=== PATIENT | female | born 1960 | race Caucasian/White ===

== ENCOUNTER 2016-09-09 11:09 | Emergency (ER) | payer SELFPAY ==
[2016-09-09 11:21] VITALS: BP 151/77
[2016-09-09] MEDS ORDERED: Tetan/Diph/Pertus SYR(Tdap)* 0.5 ML SYR(BOOSTRIX) use SYR IM ONE (12:26)
--- NOTE | 2016-09-09 12:29 | ED ---
Bite Injury/Animal - History of Current Complaint Chief Complaint: EDGeneral Stated Complaint: HAND INJURY FROM WORK Time Seen by Provider: 09/09/16 11:31 Pain Intensity: 1 - Allergies/Home Medications Allergies/Adverse Reactions: Allergies Allergy/AdvReac Type Severity Reaction Status Date / Time Sulfamethoxazole Allergy Mild Rash Verified 06/02/15 10:18 w/Trimethoprim [From Bactrim] PMH/Surg Hx/FS Hx/Imm Hx Endocrine/Hematology History: Denies: Hx Diabetes, Hx Thyroid Disease Cardiovascular History: Denies: Hx Hypertension, Hx Pacemaker/ICD, Hx Peripheral Vascular Disease Respiratory History: Denies: Hx Asthma, Hx Chronic Obstructive Pulmonary Disease (COPD) GI History: Reports: Other GI Disorders - denies N/V/D fever Denies: Hx Ulcer History: Denies: Hx Dialysis, Hx Renal Disease Musculoskeletal History: Reports: Hx Osteoporosis, Other Musculoskeletal History - plantar fasciitis Sensory History: Denies: Hx Cataracts, Hx Contacts or Glasses, Hx Glaucoma, Hx Hearing Aid Opthamlomology History: Denies: Hx Cataracts, Hx Contacts or Glasses, Hx Glaucoma Neurological History: Denies: Hx Headaches, Hx Seizures, Hx Transient Ischemic Attacks (TIA) Psychiatric History: Denies: Hx Anxiety, Hx Depression, Hx Panic Disorder Infectious Disease History: Denies: Hx Hepatitis, Hx Human Immunodeficiency Virus (HIV), History Other Infectious Disease, Traveled Outside the [place] in Last 30 Days - Social History Alcohol Use: Occasionally Substance Use Type: Reports: None Smoking Status (MU): Never Smoked Tobacco Physical Exam Vital Signs On Initial Exam: Initial Vitals Temp Pulse Resp BP Pulse Ox 97.7 F 66 18 151/77 98 09/09/16 11:13 09/09/16 11:13 09/09/16 11:13 09/09/16 11:13 09/09/16 11:13 Diagnostics - Vital Signs Vital Signs Temp Pulse Resp BP Pulse Ox 09/09/16 11:13 97.7 F 66 18 151/77 98 - Laboratory Lab Statement: Any lab studies that have been ordered have been reviewed, and results considered in the medical decision making process. Bite Injury Course/Dx - Course Course Of Treatment: Patient's wounds were cleaned and dressed. Patient applied triple antibiotic ointment PARKER. Very superficial not breaking dermis layer, no need for prophylactic antibiotics at this time. Instructed to keep covered and cleaned. Educated on signs and symptoms of infection to watch out for. Follow up with PCP. HIV and Hepatitis testing obtained per patient request. May need repeat in future. Tetanus updated. Recommend ibuprofen for soreness. No imaging necessary at this time. - Diagnoses Differential Diagnosis/HQI/PQRI: Positive: Cellulitis, Laceration, Puncture, Superficial Infection, Other Provider Diagnosis: Non-accidental human bite wound, Encounter for medical screening examination, Abrasion head Discharge - Discharge Plan Condition: Stable Disposition: HOME Patient Education Materials: Human Bite (ED) Referrals: Mychal Lopez MD [Primary Care Provider] - Additional Instructions: Keep wound clean and dry. Apply dressing to keep covered especially at work. Apply triple antibiotic ointment. Rest, ice and ibuprofen for soreness/inflammation. If symptoms worsen or do not improve please seek medical attention promptly. Watch for signs and symptoms of infections such as redness, swelling, warmth and discharge. Seek medical attention if these occur. You will hear about lab test results in the next couple of days. You may need to repeat them in the future. Follow up with PCP.
[2016-09-09 13:56] LABS: Manual Entry Verification GRE0060; Rapid HIV INT CONT QC Line Present; Rapid HIV Kit Lot# F336002
== END 2016-09-09 13:17 | disposition home or self-care (01) ==
LOC: ED 11:09
DX: S60.571A Other superficial bite of hand of right hand, initial encounter (principal); W50.3XXA Accidental bite by another person, initial encounter; Y99.0 Civilian activity done for income or pay
CPT/HCPCS: 36415; 80074; 86703; 90715

== ENCOUNTER 2017-06-17 09:05 | Emergency (ER) | payer OTHER ==
--- NOTE | 2017-06-17 11:05 | UC ---
Respiratory Complaint HPI - HPI Summary HPI Summary: fever and chills last night constipated with llq pain and tenderness - History of Current Complaint Chief Complaint: UCGeneralIllness Stated Complaint: FEVER Time Seen by Provider: 06/17/17 10:58 Hx Obtained From: Patient ?: No Onset/Duration: Sudden Onset, Lasting Days - 2, Still Present Timing: Constant Severity Initially: Moderate Severity Currently: Moderate Pain Intensity: 3 Pain Scale Used: 0-10 Numeric Aggravating Factors: Nothing Alleviating Factors: Nothing Associated Signs And Symptoms: Positive: Fever, Chills - Allergies/Home Medications Allergies/Adverse Reactions: Allergies Allergy/AdvReac Type Severity Reaction Status Date / Time MS Sulfamethoxazole Allergy Mild Rash Verified 06/17/17 09:18 w/Trimethoprim [From Bactrim] PMH/Surg Hx/FS Hx/Imm Hx Previously Healthy: Yes - Surgical History Surgical History: None Surgery Procedure, Year, and Place: n/a - Family History Known Family History: Positive: Cardiac Disease - Social History Occupation: Employed Full-time Lives: With Family Alcohol Use: Occasionally Substance Use Type: None Smoking Status (MU): Never Smoked Tobacco Review of Systems Constitutional: Fever, Chills, Fatigue Skin: Negative Eyes: Negative ENT: Negative Respiratory: Negative Cardiovascular: Negative Gastrointestinal: Abdominal Pain, Other - constipation Genitourinary: Negative Motor: Negative Neurovascular: Negative Musculoskeletal: Negative Neurological: Negative Psychological: Negative Is Patient Immunocompromised?: No All Other Systems Reviewed And Are Negative: Yes Physical Exam Triage Information Reviewed: Yes Appearance: Well-Appearing, No Pain Distress, Well-Nourished Vital Signs: Initial Vital Signs Temp 98.7 F 06/17/17 09:22 Pulse 92 06/17/17 09:22 Resp 16 06/17/17 09:22 BP 155/84 06/17/17 09:22 Pulse Ox 100 06/17/17 09:22 Vital Signs Reviewed: Yes Eye Exam: Normal Eyes: Positive: Conjunctiva Clear ENT Exam: Normal ENT: Positive: Normal ENT inspection, Hearing grossly normal, Pharynx normal. Negative: Nasal congestion, Nasal drainage, TMs normal, Tonsillar swelling, Tonsillar exudate, Trismus, Muffled voice, Hoarse voice, Dental tenderness, Sinus tenderness, Uvula midline Dental Exam: Normal Neck exam: Normal Neck: Positive: Supple, Nontender, No Lymphadenopathy Respiratory Exam: Normal Respiratory: Positive: Chest non-tender, Lungs clear, Normal breath sounds, No respiratory distress, No accessory muscle use Cardiovascular Exam: Normal Cardiovascular: Positive: RRR, No Murmur, Pulses Normal, Brisk Capillary Refill Abdominal Exam: Normal Abdomen Description: Positive: No Organomegaly, Soft, Other: - llq. Negative: CVA Tenderness (R), CVA Tenderness (L), Distended, Guarding, Hepatomegaly, McBurney's Point Tenderness Bowel Sounds: Positive: Present Musculoskeletal Exam: Normal Musculoskeletal: Positive: Strength Intact, ROM Intact, No Edema Neurological Exam: Normal Neurological: Positive: Muscle Tone Normal Psychological Exam: Normal Psychological: Positive: Normal Response To Family, Age Appropriate Behavior Skin Exam: Normal Skin: Positive: rashes UC Diagnostic Evaluation - Laboratory O2 Sat by Pulse Oximetry: 100 Diagnostic Studies Comment: Influenza A/B (-), urine +1 Protien Respiratory Course/Dx - Course Course Of Treatment: Light diet, cipro, flagyl, to ed should symptoms worsen or fail to improve - Differential Dx/Diagnosis Provider Diagnoses: Elevated blood pressure without dx of hypertension, LLQ pain , protienuria Discharge - Discharge Plan Condition: Stable Disposition: HOME Prescriptions: Ciprofloxacin TAB* [Cipro 500 MG TAB*] 500 mg PO BID #20 tab metroNIDAZOLE [Flagyl 500 MG TAB] 500 mg PO TID #21 tab Patient Education Materials: Diverticulitis (ED), Diverticulitis Diet (ED), Hypertension (ED) Forms: *Work Release Referrals: Mychal Lopez MD [Primary Care Provider] - 1 Week Additional Instructions: If symptoms worsen in any way please report to ED. Follow with PCP
[2017-06-17 12:11] VITALS: BP 125/82
== END 2017-06-17 12:11 | disposition home or self-care (01) ==
LOC: UCEAST 09:05
DX: R10.32 Left lower quadrant pain (principal); R80.9 Proteinuria, unspecified; R03.0 Elevated blood-pressure reading, without diagnosis of hypertension; Z88.2 Allergy status to sulfonamides
CPT/HCPCS: 81003; 87502; 99212; G0463

== ENCOUNTER 2019-04-24 09:02 | Observation (INO) | payer OTHER ==
--- OUTSIDE RECORDS SUMMARY | 2019-04-24 09:11 | XMS REPORT | Continuity of Care Document ---
:1960 External Reference #:[id number] Author Name Janes Feliciano M.D. Address [address] [place] [address] Care Team Providers Name Role Phone Mychal Lopez M.D. - Family Care Team Information Railroad Inspector [phone] Medicine Problems Active Problems Provider Date Osteoarthritis Onset: Primary iridocyclitis Janes Feliciano M.D. Onset: 08/23/2017 Conjunctival hemorrhage Citlalli Guy O.D. Onset: 12/13/2017 Social History Type Date Description Comments Sex Unknown ETOH Use Occasionally consumes wine Tobacco Use Start: Unknown Patient has never smoked Recreational Drug Use Denies Drug Use Smoking Status Reviewed: 03/22/19 Patient has never smoked Allergies, Adverse Reactions, Alerts Active Allergies Reaction Severity Comments Date Bactrim 08/23/2017 Medications Active Medications SIG Qnty Indications Ordering Provider Date Prednisolone Acetate 1 drops right eye 10ml H20.011 Janes Feliciano, 1% every hour. Taper M.D. Suspension as directed Cyclopentolate HCL 1 drop right eye 6ml H20.011 Janes Feliciano, 2018 1% three times a day M.D. 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 10/12/2018 H25.13 Age-related nuclear cataract, bilateral Janes Feliciano M.D. 10/12/2018 H52.13 Myopia, bilateral Janes Feliciano M.D. 10/12/2018 H52.4 Presbyopia Janes Feliciano M.D. Plan of Treatment Future Appointment(s):10/16/2019 3:45 pm - Janes Feliciano M.D. at [facility], [facility]105/22/2018 - Janes Feliciano M.D.H20.011 Primary iridocyclitis, right eyeNew Medication:Prednisolone Acetate 1 % - 1 drops right eye every hour. Taper as directedCyclopentolate HCL 1 % - 1 drop right eye three times a dayComments:Smoking can increase the risk of developing or worsening any eye related disease, as well as affect your overall health. If you are a smoker, we strongly recommend that you quit.If you are not a smoker, we strongly recommend that you do not start. You have inflammation in the front part of your right eye. Please follow Dr. Feliciano's instructions and keep all your follow up appointments. It is very important that you take all medication as prescribed. WILL RESTART THE PREDNISOLONE EYE DROP, USE 1 DROP EVERY HOUR WHILE AWAKE TO THE RIGHT EYE.ON TUESDAY(TOMORROW)DECREASE TO 1 DROP EVERY 2 HOURS WHILE AWAKE TO THE RIGHT EYE.ON TUESDAY DECREASE TO 1 DROP 6 TIMES A DAY TO THE RIGHT EYE. I WILL PRESCRIBE ANOTHER EYE DROP TO KEEP YOUR RIGHT EYE DILATED(CYCLOPENTOLATE) . USE 1 DROP 3 TIMES A DAY TOTHE RIGHT EYE.I WILL FOLLOW UP WITH YOU ON TUESDAY.Follow up:TUESDAY, CORNEA CHECK At your next visit, we are not planning to dilate your eyes. However, if you have any changes in your vision or new symptoms, there are certain situations that require us to dilate your eyes. If Dr. Felciiano requests any additional testing , that may require extra time. If you have any questions before your next appointment, please call our office at . Functional Status Description No Information Available Mental Status Description No Information Available Referrals Description No Information Available
--- OUTSIDE RECORDS SUMMARY | 2019-04-24 09:11 | XMS REPORT | Continuity of Care Document ---
:1960 External Reference #:[id number] Author Name Janes Feliciano M.D. Address [address] [place] [address] Care Team Providers Name Role Phone Mychal Lopez M.D. - Family Care Team Information College Physics Instructor [phone] Medicine Problems Active Problems Provider Date Osteoarthritis Onset: Primary iridocyclitis Janes Feliciano M.D. Onset: 08/23/2017 Conjunctival hemorrhage Citlalli Guy O.D. Onset: 12/13/2017 Social History Type Date Description Comments Sex Unknown ETOH Use Occasionally consumes wine Tobacco Use Start: Unknown Patient has never smoked Recreational Drug Use Denies Drug Use Smoking Status Reviewed: 04/10/19 Patient has never smoked Allergies, Adverse Reactions, Alerts Active Allergies Reaction Severity Comments Date Bactrim 08/23/2017 Medications Active Medications SIG Qnty Indications Ordering Provider Date Prednisolone Acetate 1 drops right eye 10ml H20.011 Janes Feliciano, 1% every hour. Taper M.D. Suspension as directed Calcium Unknown 600mg Tablets Vitamin D-3 1 by mouth every Unknown 5000Unit day Tablets History Medications Cyclopentolate HCL 1 drop right 6ml H20.011 Janes Feliciano, 03/22/2019 - 1% eye three M.D. 04/10/2019 Solution times a day Immunizations Description No Information Available Vital Signs Description No Information Available Results Description No Information Available Procedures Date Code Description Status 03/22/2019 38852 Est Patient Intermediate Exam Completed 10/12/2018 35882 Determination Of Refractive State Completed 10/12/2018 27151 Est Patient Comprehensive Exam Completed Medical Devices Description No Information Available Encounters Type Date Location Provider Dx Diagnosis Office Visit 03/27/2019 [facility], Janes Feliciano, H20.011 Primary 1:00p katy ROMAN M.D. 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 10/12/2018 H25.13 Age-related nuclear cataract, bilateral Janes Feliciano M.D. 10/12/2018 H52.13 Myopia, bilateral Janes Feliciano M.D. 10/12/2018 H52.4 Presbyopia Janes Feliciano M.D. Plan of Treatment Future Appointment(s):10/16/2019 3:45 pm - Janes Feliciano M.D. at [facility], 04/10/2019 - Janes Feliciano M.D.H20.011 Primary iridocyclitis, right eyeComments:Smoking can increase the risk of developing or worsening any eye related disease, as well as affect your overall health. If you are a smoker , we strongly recommend that you quit.If you are not a smoker, we strongly recommend that you do not start. You have inflammation in the front part of your right eye. Please follow Dr. Feliciano's instructions and keep all your follow up appointments. It is very important that you take all medication as prescribed. DECREASE THE PREDNISOLONE DROP TO 1 DROP 3TIMES A DAY TO THE RIGHT EYE FOR 2 WEEKS. THEN DECREASE THE PREDNISOLONE DROP TO 1 DROP 2 TIMES A DAY TO THE RIGHT EYE FOR 2 WEEKS. THEN DECREASE THE PREDNISOLONE DROP TO 1 DROP ONCE A DAY TO THE RIGHT EYE FOR 2 WEEKS.Follow up:6 Week Follow Up CORNEA CHECK At your next visit, we are not planning to dilate your eyes. However,if you have any changes in your vision or new symptoms, there are certain situations that require usto dilate your eyes. If Dr. Zablocki requests any additional testing, that may require extra time. If you have any questions before your next appointment, please call our office at . Functional Status Description No Information Available Mental Status Description No Information Available Referrals Description No Information Available
--- OUTSIDE RECORDS SUMMARY | 2019-04-24 09:11 | XMS REPORT | Continuity of Care Document ---
:1960 External Reference #:[id number] Author Name Janes Feliciano M.D. Address [address] [place] [address] Care Team Providers Name Role Phone Mychal Lopez M.D. - Family Care Team Information Automatic Spinning Lathe Setter [phone] Medicine Problems Active Problems Provider Date Osteoarthritis Onset: Primary iridocyclitis Janes Feliciano M.D. Onset: 08/23/2017 Conjunctival hemorrhage Citlalli Guy O.D. Onset: 12/13/2017 Social History Type Date Description Comments Sex Unknown ETOH Use Occasionally consumes wine Tobacco Use Start: Unknown Patient has never smoked Recreational Drug Use Denies Drug Use Smoking Status Reviewed: 03/27/19 Patient has never smoked Allergies, Adverse Reactions, [...] Available Procedures Date Code Description Status 03/22/2019 21929 Est Patient Intermediate Exam Completed 10/12/2018 11121 Determination Of Refractive State Completed 10/12/2018 76528 Est Patient Comprehensive Exam Completed Medical Devices Description No Information Available Encounters Description No Information Available Assessments Date Code Description Provider 03/27/2019 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 10/12/2018 H25.13 Age-related nuclear cataract, bilateral Janes Feliciano M.D. 10/12/2018 H52.13 Myopia, bilateral Janes Feliciano M.D. 10/12/2018 H52.4 Presbyopia Janes Feliciano M.D. Plan of Treatment Future Appointment(s):10/16/2019 3:45 pm - Janes Feliciano M.D. at [facility] Jin [facility], [facility]05/27/2018 - Janes Feliciano M.D.H20.011 Primary iridocyclitis, right [...] take all medication as prescribed. DECREASE THE CYCLOPENTOLATE DROP TO ONCE ADAY TO THE RIGHT EYE FOR 1 WEEK THEN STOP.DECREASE THE PREDNISOLONE DROP TO 1 DROP 6 TIMES A DAY TOTHE RIGHT EYE FOR 1 WEEKS THEN DECREASE THE PREDNISOLONE DROP TO 1 DROP 4 TIMES A DAY TO THE RIGHT EYE.Follow up:2 Week Follow Up CORNEA CHECK At your next visit, we are not planning to dilate your eyes. However,if you have any changes in your vision or new symptoms, there are certain situations that require usto dilate your eyes. If Dr. Feliciano requests any additional testing, that may require extra time. If you have any questions before your next appointment, please call our office at . Functional Status Description No Information Available Mental Status Description No Information Available Referrals Description No Information Available
--- OUTSIDE RECORDS SUMMARY | 2019-04-24 09:11 | XMS REPORT | Continuity of Care Document ---
:1960 External Reference #:[id number] Author Name Janes Feliciano M.D. (transmitted by agent of provider Jose Chaparro) Address [address] [place] [address] Care Team Providers Name Role Phone Mychal Lopez M.D. - Family Care Team Information Metrology Manager [phone] Medicine Problems Active Problems Provider Date Osteoarthritis [...] Available Procedures Date Code Description Status 03/22/2019 08162 Est Patient Intermediate Exam Completed 10/12/2018 00743 Determination Of Refractive State Completed 10/12/2018 51433 Est Patient Comprehensive Exam Completed Medical Devices [...] us to dilate your eyes. If Dr. Feliciano requests any additional testing , that may require extra time. If you have any questions before your next appointment, please call our office at . Functional Status Description No Information Available Mental Status Description No Information Available Referrals Description No Information Available
[2019-04-24] MEDS ORDERED: NS 0.9% 1000 ML** 1,000 ML IV ONE (09:26)
--- NOTE | 2019-04-24 09:37 | ED ---
Neurological HPI - HPI Summary HPI Summary: Pt is a 59 y/o F presenting to the ED brought in by EMS for neurological symptoms, namely memory loss. She presents with her daughter. ZACHARY KELLER CALLED [phone]. Last known well last night at 2100. Pts daughter states that the pt woke up around 0530 with nausea, diarrhea, and one episode of emesis. She was repeatedly asking her what day it was and if she was supposed to be at work. Around 0730, pts told pts daughter about what happened, and he tried to drive her to the hospital. D/t snow, they called EMS, and [facility] just after 0900. Pts daughter states that the pt can remember her childrens names, but cannot remember her grandchildrens names. They were also at [facility] all day yesterday visiting a family member, but pt does not remember this and thought she was at work. She cannot name the president, and believes it is 2009. Pt denies any physical complaints: no cp, sob, abd pain. No n/v/d. no bardales, vision changes. Pt has hx of migraines as well as recent R eye issues that she uses eye drops for - dx unclear ?autoimmune - followed by Dr. Millard. Pt has had recent low-grade fever, around 100 degrees F. Patients medications reviewed this visit. - History of Current Complaint Chief Complaint: EDNeurologicalDeficit Stated Complaint: ACUTE MEMORY LOSS PER EMS Time Seen by Provider: 04/24/19 09:18 Last Known Well Date: 04/23/19 night time Hx Obtained From: Patient, Family/Assistant Product Manager - daughter Onset/Duration: Gradual Onset, Started hours ago, Still Present Timing: Constant Onset Severity: Moderate Current Severity: Moderate Pain Intensity: 0 Pain Scale Used: 0-10 Numeric Character: Other: - memory loss Aggravating: Unknown Alleviating: Nothing Associated Signs and Symptoms: Positive: Memory Loss, Nausea/Vomiting, Fever, Diarrhea. Negative: Numbness, Chest Pain, Shortness of Breath - Allergy/Home Medications Allergies/Adverse Reactions: Allergies Allergy/AdvReac Type Severity Reaction Status Date / Time sulfamethoxazole Allergy Rash Verified 04/24/19 09:53 [From Bactrim] trimethoprim [From Bactrim] Allergy Rash Verified 04/24/19 09:53 Home Medications: Home Medications prednisoLONE 1% OPHTH.SUSP* [Pred Forte 1%*] 1 drop RIGHT EYE BID 04/24/19 [ History Confirmed 04/25/19] PMH/Surg Hx/FS Hx/Imm Hx Previously Healthy: Yes Endocrine/Hematology History: Denies: Hx Anticoagulant Therapy, Hx Diabetes, Hx Thyroid Disease Cardiovascular History: Denies: Hx Hypertension, Hx Pacemaker/ICD, Hx Peripheral Vascular Disease Respiratory History: Denies: Hx Asthma, Hx Chronic Obstructive Pulmonary Disease (COPD) GI History: Reports: Other GI Disorders - denies N/V/D fever Denies: Hx Ulcer History: Denies: Hx Dialysis, Hx Renal Disease Musculoskeletal History: Reports: Hx Osteoporosis, Other Musculoskeletal History - plantar fasciitis Sensory History: Denies: Hx Cataracts, Hx Contacts or Glasses, Hx Glaucoma, Hx Hearing Aid Opthamlomology History: Denies: Hx Cataracts, Hx Contacts or Glasses, Hx Glaucoma Neurological History: Denies: Hx Headaches, Hx Seizures, Hx Transient Ischemic Attacks (TIA) Psychiatric History: Denies: Hx Anxiety, Hx Depression, Hx Panic Disorder - Surgical History Surgery Procedure, Year, and Place: n/a - Immunization History Date of Tetanus Vaccine: needs updated Infectious Disease History: No Infectious Disease History: Denies: Hx Hepatitis, Hx Human Immunodeficiency Virus (HIV), History Other Infectious Disease, Traveled Outside the [place] in Last 30 Days - Family History Known Family History: Positive: Cardiac Disease, Non-Contributory - Social History Lives: With Family Alcohol Use: Occasionally Hx Substance Use: No Substance Use Type: Reports: None Hx Tobacco Use: No Smoking Status (MU): Never Smoked Tobacco Review of Systems Positive: Fever - low grade, several months Negative: Chest Pain Negative: Shortness Of Breath Positive: Vomiting, Diarrhea, Nausea. Negative: Abdominal Pain Positive: Rash - slightly, on neck, from stress/crying Neurological: Other - memory loss Negative: Paresthesia, Numbness All Other Systems Reviewed And Are Negative: Yes Physical Exam - Summary Physical Exam Summary: Vital Signs Reviewed: Yes A+O to name and , location, not year or president Eyes: eye injected - tearful ENT: Hearing grossly normal Neck: Positive: Supple Respiratory: Positive: No respiratory distress, No accessory muscle use speaking full, easy sentences CTA throughout no w/r Cardiovascular: RRR nl s1, s2 no m/r CBT <2 sec abd soft + BS nt/nd no guarding, no distension Musculoskeletal Exam: DEUTSCH x 4 without difficulty Strength Intact, ROM Intact Neurological: Positive: PT with poor STM - no other focal findings on neuroexam - NIH = 1 per neuro who was at bedside immediately with me and completed consult at this time Psychological: Positive: Normal Response To examiner Skin: Positive: no rash, no ecchymosis Triage Information Reviewed: Yes Vital Signs On Initial Exam: Initial Vitals Temp Pulse Resp BP Pulse Ox 98.6 F 85 16 176/105 91 04/24/19 09:07 04/24/19 09:07 04/24/19 09:07 04/24/19 09:07 04/24/19 09:07 Vital Signs Reviewed: Yes - Alyssia Coma Scale Best Eye Response: 4 - Spontaneous Best Motor Response: 6 - Obeys Commands Best Verbal Response: 5 - Oriented Coma Scale Total: 15 Procedures - Sedation Patient Received Moderate/Deep Sedation with Procedure: No Diagnostics - Vital Signs Vital Signs Temp Pulse Resp BP Pulse Ox 04/24/19 09:07 98.6 F 85 16 176/105 91 - Laboratory Result Diagrams: 04/25/19 05:12 04/25/19 14:54 Lab Statement: Any lab studies that have been ordered have been reviewed, and results considered in the medical decision making process. - Radiology CXR Radiology Interpretation Completed By: Radiologist Summary of Radiographic Findings: No active cardiopulmonary disease. ED physician has reviewed this report. - CT Brain CT CT Interpretation Completed By: Radiologist Summary of CT Findings: No acute intracranial pathology. ED physician has reviewed this report. - EKG 0952 Cardiac Rate: NL EKG Rhythm: Sinus Rhythm ST Segment: Normal Ectopy: None Summary of EKG Findings: EKG at 0952 shows NSR at 84bpm with Q waves in leads I and aVL. No ST elevations. Dr. Davis has reviewed and interpreted this EKG. Re-Evaluation - Re-Evaluation 1st re-eval Re-Evaluation Time: 09:37 Change: Unchanged Comment: Dr. Willingham of radiology states there is nothing acute on the brain CT. 2nd re-eval Re-Evaluation Time: 09:59 Comment: Pt Davon Crane - NIH = 1. Pt will be admitted to [facility] under the hospitalist as per Dr. Galeas and Davon Crane, OVEN LOADER. Mr. Crane spoke to Dr. Claire - accepting pt Course/Dx - Course Course Of Treatment: Patient presents to the emergency family EMS. Patient with her daughter. Patient's 59-year-old female whose only medical history involves some vascular changes to her right eye with an unclear etiology. Patient woke up at 5:00 this morning. Patient reportedly had an episode of diarrhea and some nausea at this time. Patient did have one episode of emesis. At this time, patient with you ask her the same question over and over. This continued through the morning. When the daughter found out at around 7:30 she palpation tremors,. Patient does have some amnesia of the last 24-36 hours. Patient is alert and oriented to her name and date of but not to president or year. Patient denies any pain. Patient's had anything similar previously just to the patient's been under tremendous stress emotionally at home over the last several weeks. Neurology was at the bedside immediately at the time of my evaluation. Zachary campbell was called. Completely NIH scale was completed by the neurologist reported = 1 We'll follow the recommendations closely. Suspect this could represent global amnesia and less likely a stroke but will continue with a stroke workup. Patient and her daughter both updated and agreement showing a plan. - Diagnoses Provider Diagnoses: Memory changes During the Visit The Following Alert/Code Occurred: Zachary Keller - Physician Notifications Instructed by Provider To: Admit As Inpatient - Critical Care Time Critical Care Time: 30-74 min - 30min Discharge ED - Sign-Out/Discharge Documenting (check all that apply): Patient Departure - Discharge Plan Condition: Stable Disposition: ADMITTED TO [facility] - Billing Disposition and Condition Condition: STABLE Disposition: Admitted to [facility] - Attestation Statements Document Initiated by Scribe: Yes Documenting Scribe: Opal Tenorio Provider For Whom Scribe is Documenting (Include Credential): Emma Davis MD. Scribe Attestation: Opal Keith, scribed for Emma Davis MD. on 05/02/19 at 1312. Scribe Documentation Reviewed: Yes Provider Attestation: The documentation as recorded by the scribe, Opal Tenorio accurately reflects the service I personally performed and the decisions made by me, Emma Davis MD. Status of Scribe Document: Viewed
[2019-04-24 09:46] LABS: ABS Eosinophils 0.1 10^3/ul (0-0.6); ABS Lymphocytes 0.6 10^3/ul (1.0-4.8); ABS Monocytes 0.7 10^3/ul (0-0.8); ABS Neutrophils 9.5 10^3/ul (1.5-7.7); Eosinophil % 0.9 %; Hematocrit 45 % (35-47); Hemoglobin 15.3 g/dL (12.0-16.0); Lymphocyte % 5.1 %; Mean Corpuscular HGB Conc 34 g/dL (31-36); Mean Corpuscular Hemoglobin 28 pg (27-31); Mean Corpuscular Volume 84 fL (80-97); Mean Platelet Volume 7.6 fL (7.4-10.4); Nucleated Red Blood Cells % 0.1; Platelet Count 290 10^3/uL (150-450); Red Blood Count 5.38 10^6 /uL (3.70-4.87); Red Cell Distribution Width 14 % (10-15); White Blood Count 10.8 10^3/uL (3.5-10.8)
[2019-04-24 09:54] LABS: Activated Partial Thrombo Time 37.5 seconds (26.0-38.0); INR 0.97 (0.82-1.09)
[2019-04-24 10:06] LABS: Albumin 4.2 g/dL (3.2-5.2); Albumin/Globulin Ratio 1.4 (1-3); BUN/Creatinine Ratio 16.3 (8-20); Calcium 9.5 mg/dL (8.6-10.3); EGFR African American 81.2 (>60); EGFR Non-African American 67.1 (>60); HDL Cholesterol 55.2 mg/dL; Total Bilirubin 0.6 mg/dL (0.2-1.0); Total Protein 7.2 g/dL (6.4-8.9)
[2019-04-24] MEDS: Aspirin EC TAB* 81 MG TAB.EC PO SCH (10:07)
[2019-04-24] MEDS ORDERED: Ondansetron INJ* 2 MG/ML VIAL IV ONE (10:43)
[2019-04-24] MEDS ORDERED: Ondansetron INJ* 2 MG/ML VIAL IV PRN (10:54)
[2019-04-24] MEDS ORDERED: Iohexol 350* (CONTRAST) 500 ML MDV IV SCH (11:45)
[2019-04-24 11:51] LABS: TSH (Thyroid Stimulating Horm) 0.7 mcIU/mL (0.34-5.60)
[2019-04-24 11:53] LABS: Free T4 0.72 ng/dL (0.61-1.12)
--- NOTE | 2019-04-24 12:38 | CONS ---
CC: Dr. Lopez * CONSULTATION REPORT: DATE OF CONSULT: 04/24/19 PRIMARY CARE PHYSICIAN: Dr. Lopez. REQUESTING PHYSICIAN: Dr. Emma Davis. ATTENDING PHYSICIAN WHILE IN THE HOSPITAL: Dr. Rudolph Galeas (report dictated by Davon Crane NP). REASON FOR NEUROLOGIC CONSULTATION: Altered mental status. HISTORY OF PRESENT ILLNESS: Mrs. Archer is a 59-year-old female patient who comes into the ER today with complaints of altered mental status. It is noted by the family that last known well was 10:30 last night. The patient comes in today. Does not recall that she was in the ER yesterday with her daughter. Does not recall what happened this morning. Does not recall coming in via ambulance, her trying to bring her in. The patient has had no recent changes in medications. No report of alcohol or drug use. According to the daughter, the patient woke up at 5:30 this morning, was confused, kept asking what day it was, and she was told several times by her what day it was and she could not recall the day. The was concerned as she was confused , started driving her in via private vehicle, and noted that the roads were too bad and called 911, and the patient was escorted to the hospital via ambulance. The daughter does not report any facial droop and trouble with speech or weakness to the arm or leg. The daughter does note that she has just been confused and repetitively asking the same questions over and over again. There have been no reports of loss of consciousness or seizure-like activity. There was concern because of the altered mental status, a code shannan was called, and because of this, we were asked to evaluate and consult. PAST MEDICAL HISTORY: Significant for: 1. Migraines. 2. Basal cell carcinoma. 3. There is an unspecified eye issue. We are going to try to get records from Dr. Jin's office. PAST SURGICAL HISTORY: Denied. HOME MEDICATIONS: Include, she previously was on: 1. Flagyl 500 mg p.o. t.i.d. 2. Ciprofloxacin 500 mg p.o. twice a day. We will clarify med list. ALLERGIES TO MEDICATIONS: Include BACTRIM. FAMILY HISTORY: Her mother has a history of dementia. One of the daughters does have a history of seizures. The father has a history of prostate cancer, hypertension, and high cholesterol. SOCIAL HISTORY: She does not smoke. She is a registered nurse at [employer]. She does not drink. If she does drink, it is very occasional and rarely. Surrogate decision maker is her . REVIEW OF SYSTEMS: There is no documented fever. She denied having any significant weight change. There is no ear discharge, no rhinorrhea. No sore throat. No thyroid enlargement. Denied having any chest pain. There was no abdominal pain. There was episode of nausea with diarrhea this morning, but no prior illnesses reported leading up to this. There has been no loss of consciousness, no pruritus, and no skin ulcerations. A review of 14 systems was completed, all others negative. PHYSICAL EXAM: Vital Signs: Blood pressure 173/102 with a pulse of 80, respirations were 16, O2 saturation 94%, temperature 98.6. General: At this time, Mrs. Archer is a 59-year-old female patient. She is well nourished, well developed, sitting on the ED stretcher. She does not appear to be in any acute distress. HEENT: Head: Atraumatic. Eyes: EOMs were intact. Sclerae anicteric and not pale. Throat: Oral mucosa appears to be dry. No oropharyngeal erythema. Neck was supple. Heart: Sounds S1, S2. She had a regular rate and rhythm. No murmurs, rubs, or gallops. Lungs: Clear to auscultation bilaterally. No wheezes, rales, or rhonchi. Abdomen: Soft, flat , nontender. Bowel sounds were present. Extremities: Pulses were 2+ throughout. She had no pitting edema. Neurologic: She is awake, she is alert, she is confused to her age. She did know it is April. She is following commands appropriately. She had no gaze deviation. Visual garcia were intact. Pupils were equal and reactive. She had no facial drooping noted of the upper or lower face. She had no drift noted. She had 5/5 strength in the upper extremities distally and proximally and 5/5 strength in the lower extremities as well distally and proximally. No drift noted in the legs. There was no limb ataxia. She was able to perform [id number] and [id number] bilaterally. Sensory was intact to pinprick to the face, arm, and legs. She had no aphasia noted. She had normal articulation. She had no neglect noted. Her NIH Stroke Scale was 1. She had no trouble with rapid alternating movements. Again, there were no focal deficits noted. Her reflexes were symmetric at the patella , symmetric at the biceps and brachioradialis. Babinski sign was equivocal. No nuchal rigidity was noted. Skin: Her skin was intact. DIAGNOSTIC STUDIES/LAB DATA: Labs revealed WBC 10.8, RBC of 5.38, hemoglobin 15.3, hematocrit 45, platelet count of 290. INR of 0.97, PTT of 37.5. Lactic acid 1.5, glucose 102. She had a CT of the brain. I did review the images with Dr. Galeas. I did not appreciate any acute hemorrhage. Radiology read it as no acute intracranial findings. Old medical records were reviewed. ASSESSMENT AND PLAN: Mrs. Archer is a 59-year-old female patient coming into the ED today with complaints of altered mental status. There was concern for possible stroke. Katya campbell was called. We were asked to evaluate and consult. Recommendations of going forward at this point are: 1. Altered mental status. I suspect the patient is suffering from transient global amnesia. She has been under an extensive amount of stress which could have triggered this; however, I would like to rule out any vascular insult such as stroke. I have ordered an MRI, a CTA of the head and neck. I have ordered an echo with bubble study. She has been noted on exam to be asking repetitive questions and the similar question again and again, particularly what day it is and how she got here. My plan would be to check a B12, TSH as well. I am ordering an EEG as well. We will place her on telemetry. I have ordered an aspirin. She will have neuro checks every 4 hours and I have advised a bedside swallow evaluation. If she does not clear in 24 hours, we may need to consider further workup, possible LP, but we will reevaluate. Her NIH Stroke Scale was 1. She was not a tPA candidate given the fact that she is out of the window and again, I do not believe she has a large-vessel occlusion given her overall exam at this point, but again CTA is pending. 2. Unspecified eye issue. We will get records from Dr. Jin's office. 3. Migraines. She is not having any headaches. 4. Nausea, vomiting. Labs are pending at this point. She is not having any abdominal pain. We will continue to monitor this and defer further workup to the hospitalist team. 5. DVT prophylaxis. Defer to primary team. 6. Code status. Full code. 7. Fluid and nutrition. If she passes swallowing evaluation, she should have a heart-healthy diet. 8. Blood pressure in the setting of a possible cerebrovascular accident. I would like to treat for systolics greater than 200 and diastolics greater than 110 as needed. After the first 24 hours, we can control the blood pressure a little more aggressively. We will continue to follow. TIME SPENT: Time spent on the consult was 60 minutes, greater than half the time was spent [id number] with the patient, other half of the time was spent implementing the plan of care. I did discuss the plan of care with my attending, Dr. Galeas. He was in agreement. He also evaluated the patient. DAVON CRANE NP [id number]/[facility] #: [id number] PAMELLA
[2019-04-24] MEDS: Acetaminophen TAB* 325 MG PO PRN ×2 (12:50→21:08)
[2019-04-24] MEDS: Enoxaparin(*) 40 MG/0.4 ML SYR SUBCUT SCH (12:51)
[2019-04-24 13:45] LABS: Urine Appearance Clear; Urine Bilirubin Negative (Negative); Urine Blood Negative (Negative); Urine Color Yellow; Urine Glucose Negative (Negative); Urine Ketones Negative (Negative); Urine Nitrite Negative (Negative); Urine Protein Negative (Negative); Urine Specific Gravity 1.028 (1.010-1.030); Urine Urobilinogen Negative (Negative)
[2019-04-24 13:55] LABS: Urine Bacteria Absent (Absent); Urine Red Blood Cell 1+(3-5/hpf) (Absent); Urine Squamous Epithelial Cell Present (Absent); Urine White Blood Cell Trace(0-5/hpf) (Absent)
[2019-04-24 14:30] LABS: C Reactive Protein 5.37 mg/L (<8.01)
[2019-04-24] MEDS ORDERED: Ketorolac INJ* 30 MG/ML 1 ML VIAL IV PUSH ONE (14:42)
[2019-04-24] MEDS: Atorvastatin* 80 MG TAB PO SCH (16:01)
--- NOTE | 2019-04-24 18:45 | ECHO ---
*[facility]* [place] [address] Fax #: [phone] Transthoracic Echocardiogram Patient: Malik Archer : 1960 Study Date: 04/24/2019 Age: 59 Gender: F HR: 86 bpm Height: 64 in /162.6 cm BSA: 2.13 m^2 Weight: 212.6 lb /96.6 kg BMI: 36.6 kg/m^2 *Grade Setter: * Annette Khan *Referring Physician: * Davon CraneReading Physician: * Jean Claude Zhu MD Indications: CVA. History: No known cardiac history. Conclusions Summary: - Left ventricle: Systolic function is mildly reduced. The estimated ejection fraction is 45-50%. Wall motion is normal; there are no regional wall motion abnormalities. - Right ventricle: Systolic function is normal. - Mitral valve: There is no significant regurgitation. - Aortic valve: Transvalvular velocity is within the normal range. There is no evidence of stenosis. There is no significant regurgitation. - Pulmonary arteries: Systolic pressure is within the normal range, estimated to be 32 mm Hg. - Study data: No prior study is available for comparison. Study data: Transthoracic echocardiogram. Procedure: Transthoracic echocardiography was performed. Image quality was good. A bubble study was performed. Complete 2D, spectral Doppler, and color flow Doppler. Location: Bedside. Patient status: Inpatient. Patient room number: 445-01. No prior study is available for comparison. Rhythm: Normal sinus rhythm. Findings Left ventricle: The cavity size is normal. Wall thickness is increased. Systolic function is mildly reduced. The estimated ejection fraction is 45-50%. Wall motion is normal; there are no regional wall motion abnormalities. Left ventricular diastolic function parameters are normal. Right ventricle: The cavity size is normal. Systolic function is normal. Left atrium: The atrium is normal in size. Right atrium: The atrium is normal in size. Mitral valve: The valve is structurally normal. There is no evidence of stenosis. There is no significant regurgitation. Aortic valve: The valve is structurally normal. The valve is trileaflet. Cusp separation is normal. Transvalvular velocity is within the normal range. There is no evidence of stenosis. There is no significant regurgitation. Tricuspid valve: The valve is structurally normal. There is no evidence of stenosis. There is trace regurgitation. Pulmonic valve: The valve is structurally normal. There is no evidence of stenosis. There is trace to mild regurgitation. Aorta: The aortic root appears normal. The aortic arch appears normal. Pericardium: There is no significant pericardial effusion. Pulmonary arteries: Systolic pressure is within the normal range, estimated to be 32 mm Hg. Systemic veins: Inferior vena cava: The vessel is normal in size. Measurements Left ventricle Value Ref Aortic valve continued Value Ref JJ, LAX (L) 3.4 cm 3.8 - Peak grad, S 9.7 mm Hg ----- 5.2 LVOT/AV, VTI ratio 0.61 ----- ESD, LAX 2.6 cm 2.2 - JACQUELINE, VTI 1.82 cm^2 ----- 3.5 JACQUELINE, Vmax 1.60 cm^2 ----- FS, LAX (L) 18 % 27 - 45 FS (L) 18 % 27 - 45 Mitral valve Value Ref E', lat tasha, TDI 15.2 cm/sec >=10.0 Peak E 0.51 m/sec ----- E/e', lat tasha, 3 -------- Peak A 1.05 m/sec --- -- TDI Decel time 191 ms ----- Peak E/A ratio 0.49 ----- LVOT Value Ref Diam, S 1.96 cm -------- Pulmonic valve Value Ref Area 3.0 cm^2 -------- Peak v, S 0.95 m/sec ----- Peak alicja, S 0.83 m/sec -------- Peak grad, S 3.6 mm Hg ----- VTI, S 15.9 cm -------- Peak grad, S 3 mm Hg -------- Tricuspid valve Value Ref Mean grad, S 1 mm Hg -------- TR peak v 2.62 m/sec <=2.8 Peak RV-RA grad, S 27 mm Hg ----- Ventricular septum Value Ref IVS, ED (H) 1.4 cm 0.6 - Aortic root Value Ref 0.9 Root diam 3.1 cm <4.2 Right ventricle Value Ref Ascending aorta Value Ref JJ, LAX 2.9 cm -------- AAo AP diam, S 3.3 cm ----- AAo AP diam/bsa, S 1.5 cm/m^2 ----- Left atrium Value Ref LA ID 3.8 cm -------- Aortic arch Value Ref SI dim ES, LAX 3.8 cm -------- Arch diam 3.1 cm ----- SI dim, A4C 4.6 cm -------- Vol, ES, 2-p 57 ml -------- Decending aorta Value Ref Vol/bsa, ES, 2-p 27 ml/m^2 16 - 34 Danielle peak alicja 0.56 m/sec ----- Aortic valve Value Ref Peak v, S 1.55 m/sec -------- VTI, S 26.3 cm -------- Mean grad, S 6.1 mm Hg -------- Legend: (L) and (H) eleuterio values outside specified reference range. Prepared and electronically signed by Jean Claude Zhu MD 04/24/2019 18:45
--- NOTE | 2019-04-24 21:55 | EEG ---
ELECTROENCEPHALOGRAPHY REPORT: DATE OF STUDY: 04/24/19 - ROOM #445 PATIENT OF: Dr. Crane. CLINICAL PROBLEM: This is a 59-year-old man being evaluated for transient global amnesia. MEDICATIONS: Include: 1. Lovenox. 2. Lipitor. 3. Aspirin. 4. Zofran. REPORT: With the patient awake, background cerebral activity consists of moderate- amplitude posterior-dominant 10 Hz rhythm. There is some admixed beta activity noted. At times, the patient becomes drowsy, but some diffuse theta activity noted of moderate to high amplitude. No clear epileptiform potentials, focal abnormalities, or major asymmetries of background are noted. CLINICAL IMPRESSION: This awake and drowsy EEG is within normal limits. [id number]/[facility] #: [id number] [facility]
[2019-04-25 05:20] LABS: ABS Basophils 0.1 10^3/ul (0-0.2); ABS Lymphocytes 0.3 10^3/ul (1.0-4.8); ABS Monocytes 0.3 10^3/ul (0-0.8); Hematocrit 40 % (35-47); Hemoglobin 13.9 g/dL (12.0-16.0); Lymphocyte % 3.4 %; Mean Corpuscular HGB Conc 34 g/dL (31-36); Mean Corpuscular Hemoglobin 28 pg (27-31); Mean Corpuscular Volume 83 fL (80-97); Mean Platelet Volume 7.4 fL (7.4-10.4); Platelet Count 221 10^3/uL (150-450); Red Blood Count 4.88 10^6 /uL (3.70-4.87); Red Cell Distribution Width 14 % (10-15); White Blood Count 8.7 10^3/uL (3.5-10.8)
[2019-04-25 05:37] LABS: BUN/Creatinine Ratio 12.8 (8-20); Calcium 8.4 mg/dL (8.6-10.3); EGFR African American 90.9 (>60); EGFR Non-African American 75.1 (>60); HDL Cholesterol 44.9 mg/dL; Potassium 3.1 mmol/L (3.5-5.0)
[2019-04-25] MEDS: Aspirin EC TAB* 81 MG TAB.EC PO SCH (07:52)
[2019-04-25] MEDS: Acetaminophen TAB* 325 MG PO PRN (07:52)
[2019-04-25] MEDS ORDERED: PROCHLORPERAZINE INJ 5 MG/ML 2 ML VIAL IV PRN (08:00)
[2019-04-25] MEDS ORDERED: Potassium Chlor TAB* 20 MEQ TAB.ER PO ONE (08:41)
[2019-04-25] MEDS: KCL 20 MEQ/100 ML IVPREMIX* 20 MEQ/100 ML BAG IV SCH ×2 (09:23→12:30)
[2019-04-25] MEDS ORDERED: prednisoLONE 1% OPHTH.SUSP* 5 ML OPHTH.SUSP RIGHT EYE SCH (10:30)
--- NOTE | 2019-04-25 12:17 | HP ---
ADMISSION HISTORY AND PHYSICAL: DATE OF ADMISSION: 04/24/19 PRIMARY CARE PROVIDER: Dr. Lopez. PROVIDER: Cassandra Villeda NP. ATTENDING PHYSICIAN: Dr. Claire.* (DICTATED BY CASSANDRA VILLEDA NP) OTHER PROVIDER: Dr. Galeas. CHIEF COMPLAINT: Memory loss. HISTORY OF PRESENT ILLNESS: This is a 59-year-old female with past medical history significant for migraines and diverticulitis, who came to the emergency room on 04/25/19, last known well was at 9 o'clock the previous evening, woke up at 5:30 in the morning with nausea, vomiting, diarrhea. She was unsure of the day, kept repeating the same questions to her , at which point they realized something was wrong. She appeared confused. Recently, she has been under an extreme amount of stress. Daughter is currently admitted into the hospital after having had surgery. 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 The hospitalists were asked to evaluate the patient for admission. In the emergency room, labs were drawn. Dr. Galeas was consulted, who came to see the patient and multiple tests were run including brain CT, head CTA, brain MRI, transthoracic echocardiogram, EKG and EEG to rule out TIA, CVA and to evaluate brain function. The patient was evaluated at bedside. She appeared distressed, tearful, surprised at the fact that she did not remember multiple major occurrences in her life, was able to help obtain some of her information from her daughter who lives with them. PAST MEDICAL HISTORY: Plantar fasciitis, diverticulitis, osteoporosis, and migraines. PAST SURGICAL HISTORY: None. HOME MEDICATIONS: 1. Prednisolone 1% one drop to right eye q.1 hour. 2. Cyclopentolate 1% one drop to right eye t.i.d. ALLERGIES: SULFAMETHOXAZOLE, TRIMETHOPRIM. FAMILY HISTORY: Mother has dementia. Father had prostate cancer and cardiac problems. Sister had breast cancer. SOCIAL HISTORY: Denies any tobacco use. Occasionally drinks ETOH. Denies any recreational substance use. Lives with her and her daughter. 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 REVIEW OF SYSTEMS: An 11-point system review was performed, which was significant for conjunctivitis in the right eye without any pruritus or drainage , memory loss, nausea, vomiting, and several loose stools. Negative for chest pain, shortness of breath, abdominal pain, or issues moving her bowel or bladder. Denies dizziness, lightheadedness, or headache. PHYSICAL EXAMINATION GENERAL: This is a well-developed woman seen sitting up in bed, in mild distress. VITAL SIGNS: 98.4 Fahrenheit, 95 pulse, 18 resp, 94% oxygen on room air, 145/ 76 blood pressure. HEENT: Eyes: Conjunctiva to the right eye is injected with no drainage. Left eye conjunctiva clear. PERRLA. EOMs intact. ENT: Mucous membranes moist. Oropharynx clear. NECK: Supple. RESPIRATORY: Lung sounds clear throughout bilaterally on room air. No accessory muscle use noted. CARDIAC: S1, S2 present. Heart rate regular. No murmurs, gallops, or rubs appreciated. ABDOMEN: Soft, nontender, nondistended with positive bowel sounds x4. MUSCULOSKELETAL: Able to move all extremities. No clubbing or cyanosis of the digits. NEUROLOGICAL: No facial asymmetry. Tongue is midline. Hand grasps equal. No pronator drift. No focal deficits appreciated. PSYCH: She is alert and oriented x3 with some retrograde amnesia. Thought content organized. SKIN: No open areas appreciated. DIAGNOSTIC STUDIES/LAB DATA: Pertinent lab studies: RBC 5.38, glucose 115, triglycerides 112, cholesterol 248, LDL cholesterol 170, HDL cholesterol 55.2. Ammonia level of 66. Diagnostic studies: Brain MRI showed no restricted diffusion to suggest acute infarct, indeterminate lesion of the right frontal skull, this had nonaggressive features on the CT. In the absence of a history of malignancy, this is likely an incidental finding. If there is a clinical concern for osseous metastatic disease, consider further evaluation with bone scan. CTA of the head and neck showed no internal carotid artery stenosis and no aneurysm, vascular malformation, occlusion or stenosis of the visualized intracranial circulation. Chest x-ray showed no active cardiopulmonary disease. Brain CT showed no acute intracranial pathology. Transthoracic echocardiogram showed an ejection fraction of 45% to 50% with no regional wall abnormalities, showed trace regurgitation of tricuspid valve, trace to mild regurgitation of pulmonic valve. EKG showed sinus rhythm with mild ST depression in V3 and V4. ASSESSMENT AND PLAN: My impression: This is a 59-year-old female with a past medical history significant for migraines and diverticulitis, who was admitted on 04/24/19 for possible transient global amnesia with likely superimposed hepatic encephalopathy. 1. Retrograde amnesia versus hepatic encephalopathy. The patient woke up with sudden retrograde amnesia and confusion which did not seem to resolve much upon coming to the emergency room. Ammonia level was 66 with all other liver enzymes within normal range. The patient did have a remote history in [address] scan showing multiple low density liver lesions. Liver ultrasound ordered for the evening. Dr. Galeas consulted, who was aware of the results of all the imaging. His initial impression was that the indeterminate lesion in the right frontal skull was likely unrelated to what her presentation was and will continue to follow her. Cerebrovascular accident or transient ischemic attack has been ruled out at this point, we believe this is more likely transient global amnesia as the patient has been under extreme duress; however, due to the high ammonia level, the patient was given lactulose and ordered for it to be given 3 times a day and we will recheck ammonia in the a.m. The patient started on [address] Galeas. 2. Newly diagnosed hyperlipidemia. LDL was 170, had no previous past medical history of issues with this. Place the patient on atorvastatin 80 mg per day. Educated the patient about the possible side effects of muscle pain. 3. Conjunctivitis of the right eye. Daughter and the patient was unsure of the name of the diagnosis, though stated she has been followed by Dr. Jin who ordered the prednisone drops, which we will continue, though it does not bother her by causing any pruritus or pain or changes in her vision. 4. DVT prophylaxis: We will start her on Lovenox. 5. Code status is full code. TIME SPENT: Time spent on the patient was 60 minutes with half of that spent face- to-face. Case reviewed by my attending and agreed with the plan of care. CASSANDRA VILLEDA, INDUSTRIAL MAINTENANCE MANAGER [id number]/[facility] #: [id number] PAMELLA
[2019-04-25] MEDS: Enoxaparin(*) 40 MG/0.4 ML SYR SUBCUT SCH (13:17)
[2019-04-25] MEDS ORDERED: Metoprolol Succinate XL TAB* 25 MG PO SCH (15:00)
[2019-04-25] MEDS ORDERED: Iohexol 300* (CONTRAST) 10 ML SDV IV ONE (15:08)
[2019-04-25 15:15] LABS: BUN/Creatinine Ratio 15.5 (8-20); Calcium 8.2 mg/dL (8.6-10.3); EGFR African American 65.9 (>60); EGFR Non-African American 54.5 (>60)
[2019-04-25 16:03] LABS: Potassium 4.8 mmol/L (3.5-5.0)
[2019-04-25 17:08] VITALS: BP 142/83
[2019-04-25] MEDS: Atorvastatin* 80 MG TAB PO SCH (18:16)
--- NOTE | 2019-04-26 02:23 | DS ---
CC: Dr. Galeas * DISCHARGE SUMMARY: DATE OF ADMISSION: 04/24/19 DATE OF DISCHARGE: 04/25/19 PROVIDER: DELIA Bennett. ATTENDING PHYSICIAN WHILE IN THE HOSPITAL: Dr. Giacomo Solis * (dictated by DELIA Bennett) CONSULTING NEUROLOGY PROVIDERS: Dr. Rudolph Galeas, Davon Crane, PERNELL, and Dr. Putnam. PRIMARY DIAGNOSIS: Episode of confusion, most likely transient global amnesia. SECONDARY DIAGNOSES: 1. History of diverticulitis. 2. Osteoporosis. 3. Chronic migraines. 4. Recent right eye anterior uveitis. PERTINENT STUDIES/LAB DATA: TSH 0.70, vitamin B12 of 232, fasting LDL 113, hemoglobin A1c 5.8. Troponin 0.00. Brain CT on 04/24/19, impression: No acute intracranial pathology. Head and neck CTA on 04/24/19, impression: No internal carotid artery stenosis. No aneurysm, vascular malformation, occlusion , or stenosis of the visualized intracranial circulation. Brain MRI on 04/24/19, impression: No restricted diffusion to suggest acute infarct. Indeterminate lesion over the right frontal skull. This had nonaggressive features on the CT. In the absence of a history of malignancy, this is likely an incidental finding. If there is a clinical concern for osseous metastatic disease, consider further evaluation with bone scan. Transthoracic echocardiogram on 04/24/19, bubble study negative. Ejection fraction 45% to 50%, wall motion is normal. Please see full report for further details. Liver ultrasound 04/24/19, nonspecific hyperechoic focus in the right lobe, could be sales representative gas service of a cavernous hemangioma. Further imaging by triphasic abdominal CT or MRI is recommended. Hepatic steatosis. Abdomen and pelvis CT with contrast on 04/25/19, impression: Fatty infiltration of liver. Low suspicion lesion of the right lobe of liver that may correspond to sonographic findings. All the CT imaging features are indeterminate, this is stable from 2013, consistent with a nonaggressive process. Diverticulosis. EKG on 04/25/19, ST depressions in leads V3 and V4. HISTORY OF PRESENT ILLNESS/HOSPITAL COURSE: Malik Archer is a 59-year-old white female with a past medical history significant for migraines and osteoporosis who presented to the emergency department on 04/24/19, with sudden confusion and disorientation. Please see admitting history and physical written by Courtney Villeda NP, for further details. Neurology was consulted and a significant neurology workup was performed. The patient ultimately was found to be without infarct, though TIA could have been possible; her symptoms were not consistent with this, considering she was entirely nonfocal and only confused and most likely represented transient global amnesia. While the workup was being performed, she was started empirically on baby aspirin and statin in case of cerebrovascular disease, though at this point this has been ruled out. By the date of discharge, the patient is back to her normal mental status. She was complaining of headache, though this improved with Tylenol and Compazine. The patient was otherwise feeling overall to her normal self but was feeling tired, which is logical given poor sleep in the hospital. Overall, the patient was found to have minimal heart failure, as her ejection fraction is diminished to 45% to 50% and this was discussed. Also of note was the likely hemangioma in her liver, of which imaging was performed considering that there are lesions of both the liver and the skull and metastatic process needed to be ruled out and thus far has been. Of note, the patient had EKGs which did not demonstrate any arrhythmia; however , she did have ST depression in lead V3, V4. There were no prior EKG's in our computer system to compare and reportedly, her PCP office had none on file either for comparison. The patient has no Q-waves. Her troponin was negative here and was not having any anginal symptoms. I do question if it is possible that she may be had a silent OK in the past given that she is a female with these findings of a minimally reduced ejection fraction; however, she does not have hypokinesis of her galindo on echocardiogram. DISCHARGE PLAN: Diet: Regular and unrestricted diet. Activity: Return to regular activity as tolerated. Perhaps, given my concern for these EKG findings and her very minimal systolic heart failure, it would be of benefit for the patient to have a stress test in the outpatient setting, though this needs to be discussed in followup with her PCP. The patient was advised to check her blood pressure if possible in the next coming days before followup with her PCP and if she is feeling dizziness or lightheadedness, especially to check it and if she is hypotensive or bradycardic, to discontinue the metoprolol. She is to follow up with her primary care provider in 7 to 10 days regarding this hospitalization. She is to return to emergency department for worsening confusion, disorientation, sudden unilateral weakness, numbness, tingling, chest pain, difficulty breathing , loss of consciousness, dizziness, lightheadedness, or other concerning symptoms. The patient is to follow up with Dr. Galeas outpatient. Perhaps on followup with her PCP it can be determined if a bone scan of her skull is needed ; however, at this point it seems to be an incidental finding. DISCHARGE MEDICATIONS: New medications: 1. Lipitor 40 mg p.o. daily. 2. Metoprolol succinate 25 mg p.o. daily. Continued home medications: Prednisolone ophthalmic solution 1 drop right eye b.i.d. CONDITION ON DISCHARGE: Stable. DISPOSITION: Home. TIME SPENT: Approximately 45 minutes were spent on this discharge, approximately half of this time was spent at the bedside evaluating the patient and discussing the plan of care. DELIA EBNNETT [id number]/[facility] #: [id number] MTDBill
[2019-04-28 12:09] LABS: Albumin 2.8 g/dL (3.4-4.7); Total Protein(PEP) 5.9 g/dL (6.3 - 7.9)
== END 2019-04-25 20:10 | disposition home or self-care (01) ==
LOC: ED 09:02 → MEDTELE 10:54
PROVIDERS: ADMIT Internal Medicine; ATTEND Internal Medicine
DX: R41.0 Disorientation, unspecified (principal); H20.9 Unspecified iridocyclitis; K57.92 Diverticulitis of intestine, part unspecified, without perforation or abscess without bleeding; M81.0 Age-related osteoporosis without current pathological fracture; G43.909 Migraine, unspecified, not intractable, without status migrainosus; M72.2 Plantar fascial fibromatosis; E78.5 Hyperlipidemia, unspecified; H10.9 Unspecified conjunctivitis; K76.0 Fatty (change of) liver, not elsewhere classified; R94.31 Abnormal electrocardiogram [ECG] [EKG]; Z85.828 Personal history of other malignant neoplasm of skin
CPT/HCPCS: 36415; 70450; 70496; 70498; 70551; 71045; 74178; 76705; 80048; 80053; 80061; 81003; 81015; 82140; 82607; 83036; 83605; 84155; 84165; 84439; 84443; 84484; 85025; 85610; 85730; 86140; 87077; 87086; 93005; 93306; 95819; 96361; 96365; 96366; 96372; 96375; 96376; 99285; A9270-GY; G0378; J0780; J1650; J1885; J2405; J3480; Q9967